=== PATIENT | female | born 1955 | race Caucasian/White ===

== ENCOUNTER 2021-02-07 10:16 | Outpatient (CLI) | payer OTHER, SELFPAY | END 2021-02-07 10:17 | disposition home or self-care (01) | LOC: ANHCOVIDVC 10:16 | DX: Z23 Encounter for immunization (principal) | CPT/HCPCS: 0001A; 91300 ==

== ENCOUNTER 2021-02-28 11:04 | Outpatient (CLI) | payer OTHER, SELFPAY | END 2021-02-28 11:05 | disposition home or self-care (01) | LOC: ANHCOVIDVC 11:05 | DX: Z23 Encounter for immunization (principal) | CPT/HCPCS: 0002A; 91300 ==

== ENCOUNTER 2021-04-23 14:59 | Emergency (ER) | payer OTHER, SELFPAY ==
[2021-04-23] VITALS (8 sets, daily range): BP systolic 132–146; BP diastolic 55–85; PULSE 67–87; RESP 16–22; TEMP 36.8; O2SAT 95–99
--- NOTE | ~2021-04-23 | CT_ITS ---
EXAMINATION: CT abdomen pelvis w con DATE: 04/23/2021 16:46 INDICATION: Diarrhea and vomiting. TECHNIQUE: Computed tomography (CT) of the abdomen and pelvis was performed with 100 mL Omnipaque 350 intravenous contrast. Automated exposure control and iterative reconstruction technique were employe d. The dose-length product was 1126.91 mGy-cm. COMPARISON: CT abdomen and pelvis 07/15/2012 FINDINGS: The visualized portions of the lung bases demonstrate mild atelectasis. A calcified left florence ng nodule is consistent with old granulomatous disease. No pleural effusion. The heart size is normal . No pericardial effusion. There is a small sliding hiatal hernia. The liver is normal. Calcification s in the spleen are consistent with old granulomatous disease. There are changes of cholecystectomy. The pancreas and right adrenal gland are normal. There are chronic masses in left adrenal gland measu ring up to 14 mm, likely adenomas. There is cortical thinning of the kidneys. There is diverticulosis of the colon without evidence of diverticulitis. The appendix is normal. There are no pathologically enlarged lymph nodes. There is no free intraperitoneal fluid. There is severe lumbar spondylosis. IMPRESSION: 1. Small sliding hiatal hernia. Reviewed, dictated and finalized at location A.
[2021-04-23 15:29] LABS: Basophils Percent Auto 0.4 % (0.2-1.2); Eosinophils Absolute Auto 0.1 K/mm3 (0-0.3); Eosinophils Percent Auto 1.2 % (0-4.4); Hematocrit 46.1 % (37.0-47.0); Hemoglobin 14.6 g/dL (12.0-15.0); Immature Granulocyte Absolute 0.02 K/mm3 (0.00-0.031); Immature Granulocyte Percent A 0.3 % (0-0.5); Lymphocytes Absolute Auto 1.26 K/mm3 (0.9-3.2); Lymphocytes Percent Auto 18.4 % (18.3-44.2); Mean Corpuscular HGB Conc 31.7 g/dl (32-36); Mean Corpuscular Hemoglobin 27.2 pg (26-34); Mean Corpuscular Volume 85.8 fl (80-100); Mean Platelet Volume 9.5 fl (7.4-10.4); Monocytes Absolute Auto 0.7 K/mm3 (0.1-0.6); Monocytes Percent Auto 9.7 % (2.6-8.5); Neutrophils Absolute Auto 4.8 K/mm3 (1.3-6.7); Platelet Count Result 242 k/mm3 (150-375); Red Blood Count 5.37 M/mm3 (4.2-5.4); Red Cell Distribution Width 12.4 % (11.5-14.5); White Blood Count 6.8 K/mm3 (4.5-10.0)
[2021-04-23 15:39] LABS: Alanine Aminotransferase 40 U/L (4-35); Albumin Level 4.2 g/dL (3.5-5.1); Alkaline Phosphatase 96 U/L (38-126); Anion Gap 11 mmol/L (8-16); Aspartate Amino Transferase 56 U/L (14-36); Bilirubin,Total 0.6 mg/dL (0.2-1.3); Blood Urea Nitrogen 11 mg/dL (7-17); Calcium 9.8 mg/dL (8.4-10.2); Carbon Dioxide 25 mmol/L (22-30); Chloride 106 mmol/L (98-107); Estimated CRCL calculation 76 ml/min; Estimated Glomerular Filt Rate > 60; Glucose 157 mg/dL (65-105); Lipase 107 U/L (23-300); Potassium 3.5 mmol/L (3.4-5.0); Sodium 142 mmol/L (137-145)
--- NOTE | 2021-04-23 16:04 | ED.GENADULT ---
HPI - General Adult General Chief complaint: Nausea/Vomiting/Diarrhea Stated complaint: diarrhea x 3days Time Seen by Provider: 04/23/21 15:53 Source: RN notes reviewed History of Present Illness HPI narrative: Patient presents emergency department from home for diarrhea. Patient states that symptoms began 3 days ago states that the night before she did in a pulled pork sandwich and began to have some upper abdominal cramping following that states the next day she had numerous episodes of diarrhea that is continued states that she did have one episode of nausea vomiting last night after she tried to eat some chicken rice soup. She denies any fevers or chills chest pain shortness of breath. States she does have abdominal cramping patient also states she is on antibiotics approximately 1 week ago with amoxicillin for URI symptoms Related Data Home Medications Medication Instructions Recorded Confirmed acyclovir 800 mg tablet 800 mg PO DAILY 06/14/20 carisoprodol 350 mg tablet 350 mg PO TID 06/14/20 clobetasol 0.05 % scalp solution 1 applic TOPICAL DAILY 06/14/20 etodolac 400 mg tablet 400 mg PO BID 06/14/20 lisinopril 10 mg tablet 10 mg PO DAILY 06/14/20 metformin 500 mg tablet 500 mg PO DAILY 06/14/20 prednisone 10 mg tablet 10 mg PO DAILY 06/14/20 tramadol 50 mg tablet 50 mg PO Q6H PRN 06/14/20 tretinoin 0.025 % topical cream 1 applic TOPICAL ONCE 06/14/20 venlafaxine 150 mg tablet,extended 150 mg PO DAILY 06/14/20 release 24 hr Allergies Allergy/AdvReac Type Severity Reaction Status Date / Time No Known Allergies Allergy Verified 02/28/21 11:12 Review of Systems Review of Systems: Narrative: Gen.: Denies fevers or chills ENT: Denies congestion Respiratory: Denies shortness of breath or cough CV: Denies chest pain or palpitations GI: See HPI denies burning, urgency, frequency or hematuria Musculoskeletal: Denies back pain or muscle pain Neuro: Denies numbness, tingling, weakness or focal weakness Skin: Denies rash Except as documented, all other systems reviewed and negative PMFSH Past Medical History Medical History Diabetes Hemoglobin A1c between 7.0% and 9.0% noted in pcp chart 06/12/20 to be 7.0 Hypertension Social History Social History (Updated 04/23/21 @ 16:05 by Albert Brown DO) Smoking status: Never smoker Exam Narrative: Exam Narrative: APPEARANCE: No acute distress, nontoxic, resting in bed HEENT: Normocephalic, atraumatic, OMM RESPIRATORY: No respiratory distress, clear to auscultation bilaterally with no rhonchi wheezing or rales CARDIOVASCULAR: RRR s murmur ABDOMINAL: Soft nondistended tender palpation right upper quadrant left upper quadrant no tenderness right lower quadrant left lower quadrant no rebound or guarding MUSCULOSKELETAl: Moves all extremities. No clubbing, cyanosis or edema. NEURO: Awake and alert. Following commands, speech normal, no focal deficits SKIN:: Warm, dry. Normal Color PSYCHIATRIC: Normal affect/mood Course Course Emergency Course: Patient states she is feeling much better following fluids Patient states that they are feeling much better at this time. States abdominal pain has resolved. Repeat abdominal exam shows the patient's abdomen to be soft and nontender. Discussed with patient results of workup and diagnosis. Discussed need for follow-up with primary care physician, reasons to return to the emergency department in proper use of medication. Patient understands and agrees to current treatment plan. Patient states her PCP did call and nausea medication for her already Vital Signs Vital signs: Vital Signs Temperature 98.2 F 04/23/21 15:14 Pulse Rate 82 04/23/21 15:14 Respiratory Rate 18 04/23/21 15:14 Blood Pressure 132/85 04/23/21 15:14 Pulse Oximetry 99 04/23/21 15:14 Temperature 98.2 F 04/23/21 15:14 Pulse Rate 67 04/23/21 16:18 Respiratory Rate 19
[2021-04-23 16:05] LABS: Add Urine Microscopic? YES; Appearance Urine Cloudy (Clear); Bacteria Urine Trace /hpf; Bilirubin Urine Negative (Negative); Blood Urine 1+ (Negative); Color Urine Amber (Yellow); Glucose Urine UA Negative (Negative); Ketones Urine 2+ mg/dL (Negative); Leukocyte Esterase Ur 1+ LEU/UL (Negative); Mucus Urine Heavy /lpf; Nitrate Urine Negative (Negative); Protein Urine 2+ mg/dL (Negative); Specific Grav Ur 1.026 (1.001-1.035); Squamous Epithelial Cell Urine Many /hpf (Few); WBC Urine 16-20 /hpf
[2021-04-23] MEDS: SODIUM CHLORIDE 0.9% IV 1,000 ML 999 ML IV CONT (16:19)
--- NOTE | 2021-04-23 17:00 | PC.NURSE ---
Assumed care of pt. at this time. Report from HARLEY Lubin
== END 2021-04-23 17:55 | disposition home or self-care (01) ==
PROVIDERS: Emergency Medicine; Emergency Provider Emergency Medicine; PCP Internal Medicine
DX: R11.2 Nausea with vomiting, unspecified (principal); R19.7 Diarrhea, unspecified; R10.13 Epigastric pain; I10 Essential (primary) hypertension; Z79.84 Long term (current) use of oral hypoglycemic drugs
CPT/HCPCS: 36415; 74177; 80053; 81001; 83690; 85025; 87086; 96360; 99284; J7030; Q9967